=== PATIENT | female | born 1955 | race Caucasian/White ===

== ENCOUNTER 2020-04-27 14:39 | Outpatient (RCR) | payer OTHER ==
[~2020-04-27 14:39] MED LIST: FLEXERIL 1010 MG/TAB PO; GLUCOPHAGE1000 MG PO; LIPITOR 40MG TA40 MG PO; NORCO 325 MG-51 TAB PO; NORCO 325 MG-7.1 TAB PO; PHENERGAN 25 TA25 MG PO; PHENERGAN25 MG RC; TRICOR145 MG PO
== END 2020-05-23 | disposition home or self-care (01) ==
LOC: WSOH
DX: S80.12XA Contusion of left lower leg, initial encounter (principal); S80.812A Abrasion, left lower leg, initial encounter; F17.210 Nicotine dependence, cigarettes, uncomplicated; Z90.49 Acquired absence of other specified parts of digestive tract; Z90.710 Acquired absence of both cervix and uterus; Y99.0 Civilian activity done for income or pay
CPT/HCPCS: 24091; A6549

== ENCOUNTER → 2020-05-30 | Outpatient (RCR) | payer OTHER | END | disposition home or self-care (01) | LOC: WSOH | DX: S80.12XD Contusion of left lower leg, subsequent encounter (principal); S80.812D Abrasion, left lower leg, subsequent encounter; F17.210 Nicotine dependence, cigarettes, uncomplicated; Z90.49 Acquired absence of other specified parts of digestive tract; Z90.710 Acquired absence of both cervix and uterus; Y99.0 Civilian activity done for income or pay ==